=== PATIENT | male | born 1985 | race Caucasian/White ===

== ENCOUNTER 2024-07-28 21:53 | Emergency (ER) | payer OTHER ==
[~2024-07-28] VITALS: Ht 175.3 cm; Wt 93.0 kg
[2024-07-28 21:57] VITALS: O2SAT 96
[2024-07-28] MEDS ORDERED: NEOMY/BACITRA/POLYMYXIN B OINT UD PACKET TP ONE (22:45)
== END 2024-07-28 23:25 | disposition left against medical advice (07) ==
LOC: ER 22:16
DX: S01.01XA Laceration without foreign body of scalp, initial encounter (principal); S60.410A Abrasion of right index finger, initial encounter; S60.412A Abrasion of right middle finger, initial encounter; S60.416A Abrasion of right little finger, initial encounter; S60.414A Abrasion of right ring finger, initial encounter; G44.309 Post-traumatic headache, unspecified, not intractable; Z59.00 Homelessness unspecified; Y08.89XA Assault by other specified means, initial encounter; Y93.89 Activity, other specified; Y92.89 Other specified places as the place of occurrence of the external cause; Y99.8 Other external cause status
CPT/HCPCS: A4606; A4663